=== PATIENT | female | born 2000 | race African-American/Black ===

== ENCOUNTER 2018-09-19 09:02 | Emergency (ER) | payer BC, MEDICAID ==
[~2018-09-19] VITALS: Ht 172.7 cm; Wt 60.0 kg
[2018-09-19] MEDS ORDERED: KETOROLAC 60MG/2ML VIAL IM ONE (09:45)
[2018-09-19] MEDS ORDERED: CYCLOBENZAPRINE 10MG TABLET PO ONE (09:45)
[2018-09-19 12:23] VITALS: BP 125/61
== END 2018-09-19 12:25 | disposition home or self-care (01) ==
LOC: ER 09:24
DX: S13.9XXA Sprain of joints and ligaments of unspecified parts of neck, initial encounter (principal); S09.8XXA Other specified injuries of head, initial encounter; V49.09XA Driver injured in collision with other motor vehicles in nontraffic accident, initial encounter; Y93.89 Activity, other specified; Y92.89 Other specified places as the place of occurrence of the external cause; Y99.8 Other external cause status
CPT/HCPCS: 70450; 71045; 72125; 96372; 99284; J1885

== ENCOUNTER 2018-09-19 14:57 | Emergency (ER) | payer BC, MEDICAID ==
[~2018-09-19] VITALS: Ht 170.2 cm; Wt 62.1 kg
[2018-09-19 15:36] VITALS: BP 91/41
== END 2018-09-19 19:27 | disposition left against medical advice (07) ==
LOC: ER 14:57
DX: Z53.21 Procedure and treatment not carried out due to patient leaving prior to being seen by health care provider (principal)